=== PATIENT | female | born 1935 | race Caucasian/White ===

== ENCOUNTER 2017-01-24 09:24 | Inpatient (IN) | payer MEDICARE, OTHER ==
[~2017-01-24] VITALS: Ht 154.9 cm; Wt 78.4 kg
[~2017-01-24 09:24] MED LIST: ASPIR-LOW81 M1 PO; FLONASE ALLERG9.9 ML; IRON PO; LOSARTAN-HCTZ1 EAC6 PO; MUCINEX600 M1 PO; OMEPRAZOLE20 M3 PO; PLAVIX75 M1 PO; PRAVASTATIN SOD80 M1 PO; SUDAFED; SYNTHROID25 MC1 PO; TOPROL XL200 M1 PO
[2017-02-07] MEDS ORDERED: DETROL1 M1 PO (14:22)
[2017-02-07] MEDS ORDERED: PEPCID20 M1 PO (14:22)
[2017-02-07] MEDS ORDERED: NORVASC5 M2 PO (14:22)
[2017-02-07] MEDS ORDERED: NORCO 5-325 TA1 EACH PO (15:23)
[2017-02-07] MEDS ORDERED: MIRALAX17 G2 PO (15:23)
[2017-02-13] MEDS ORDERED: MIRALAX17 G2 PO (14:35)
[2017-02-13] MEDS ORDERED: HYDROCODON-ACE1 EA16 PO (14:35)
[2017-02-14] MEDS ORDERED: PREVACID15 M2 PO (09:37)
[2017-02-14] MEDS ORDERED: IRON325 M3 PO (09:38)
[2017-02-14] MEDS ORDERED: HAIR, SKIN & N1 EAC2 PO (09:39)
[2017-02-14] MEDS ORDERED: CALCIUM 600 +1 EA24 PO (09:39)
[2017-02-14] MEDS ORDERED: GLUCOSAMINE &1 EAC2 PO (09:40)
[2017-02-14] MEDS ORDERED: LUTEIN-ZEAXANT1 EAC1 PO (09:40)
[2017-02-14] MEDS ORDERED: GARLIC PO (09:41)
[2017-02-14] MEDS ORDERED: CO Q-10100 M2 PO (09:41)
[2017-04-29] MEDS ORDERED: ULTRAM50 M1 PO ×2 (17:45)
[2017-04-29] MEDS ORDERED: BACTRIM DS TAB1 EAC2 PO (17:48)
[2017-05-01 13:00] LABS: PROTHROMBIN TIME 12.1 SECONDS (9.0-13.6)
[2017-05-02 06:10] LABS: BASO % 0.1 % (0-2); HCT-HEMATOCRIT 31.5 % (34.0-49.0); HGB-HEMOGLOBIN 9.6 gm/dl (12.0-15.5); IMMATURE GRANULOCYTES ABSOLUTE 0.03 tho/cmm (0-0.03); IMMATURE GRANULOCYTES PERCENT 0.3 % (0-0.3); LYMPH % 9.9 % (20-45); MCHC MEAN CORPUSCULAR HGB CONC 30.5 % (32.0-36.0); MCV (MEAN CELL VOLUME) 85.4 fl (82.0-96.0); MEAN PLATELET VOLUME 11.9 cmc (9.4-12.4); MONO % 8.2 % (0-12); MONOCYTE ABSOLUTE COUNT 0.9 tho/cmm (0.0-1.2); NEUTROPHIL ABSOLUTE COUNT 8.5 tho/cmm (1.6-8.0); NEUTROPHIL-AUTOMATED 8.5 tho/cmm (1.6-8.0); NEUTROPHILS % 81.5 % (40-80); PLATELET COUNT 195 tho/cmm (150-450); RED BLOOD COUNT 3.69 mil/cmm (4.00-5.20); RED CELL DISTRIBUTION WIDTH 16.1 % (12.4-16.4); WHITE BLOOD COUNT 10.4 tho/cmm (4.0-10.0)
[2017-05-03] MEDS ORDERED: ASPIRIN81 M1 PO (09:20)
[2017-05-03] MEDS ORDERED: TYLENOL325 M2 PO ×2 (09:21→11:59)
[2017-05-03] MEDS ORDERED: ULTRAM50 M1 PO (09:22)
[2017-05-03] MEDS ORDERED: ROXICODONE5 M2 PO (11:58)
[2017-05-03] MEDS ORDERED: MILK OF MAGNESIA PO (12:00)
[2017-05-03] MEDS ORDERED: SENOKOT-S TABL1 EACH PO (12:01)
== END 2017-05-03 14:30 | DRG 470 ==
LOC: JCUC 09:24 → 5EA 05-01 10:44 → SHSB 05-01 10:44 → SHSA 05-01 10:44 → SHSB 05-01 10:59 → JCUC 05-01 11:00 → ORE 05-01 12:48 → PACU 05-01 14:35 → 5EA 05-01 15:45 → JCUC 08-12 12:00
PROVIDERS: ADMIT Orthopaedic Surgery Foot and Ankle Surgery
PROC: 0SRD0J9 Replacement of Left Knee Joint with Synthetic Substitute, Cemented, Open Approach (ICD-10-PCS; principal; 2017-05-01)
DX: M17.12 Unilateral primary osteoarthritis, left knee (principal); G54.0 Brachial plexus disorders; I10 Essential (primary) hypertension; Z86.73 Personal history of transient ischemic attack (TIA), and cerebral infarction without residual deficits; Z79.891 Long term (current) use of opiate analgesic; Z79.899 Other long term (current) drug therapy; Z68.32 Body mass index [BMI] 32.0-32.9, adult; Z87.440 Personal history of urinary (tract) infections; I65.23 Occlusion and stenosis of bilateral carotid arteries; K29.50 Unspecified chronic gastritis without bleeding; R53.83 Other fatigue; K21.9 Gastro-esophageal reflux disease without esophagitis; R73.9 Hyperglycemia, unspecified; E78.5 Hyperlipidemia, unspecified; E87.6 Hypokalemia; E03.9 Hypothyroidism, unspecified; D50.9 Iron deficiency anemia, unspecified; E66.9 Obesity, unspecified; M48.00 Spinal stenosis, site unspecified; N31.9 Neuromuscular dysfunction of bladder, unspecified; Z86.79 Personal history of other diseases of the circulatory system
CPT/HCPCS: C1713; C1776; J0171; J0690; J1885; J2270; J2795

== ENCOUNTER 2017-02-07 13:53 | Emergency (ER) | payer MEDICARE, OTHER ==
[2017-02-07] MEDS ORDERED: NORVASC5 M2 PO (14:22)
[2017-02-07] MEDS ORDERED: PEPCID20 M1 PO (14:22)
[2017-02-07] MEDS ORDERED: DETROL1 M1 PO (14:22)
[2017-02-07] MEDS ORDERED: NORCO 5-325 TA1 EACH PO (15:23)
[2017-02-07] MEDS ORDERED: MIRALAX17 G2 PO (15:23)
== END 2017-02-07 15:28 ==
LOC: EDMED 13:53
DX: S22.41XA Multiple fractures of ribs, right side, initial encounter for closed fracture (principal); I10 Essential (primary) hypertension; E78.5 Hyperlipidemia, unspecified; W18.09XA Striking against other object with subsequent fall, initial encounter; Z86.73 Personal history of transient ischemic attack (TIA), and cerebral infarction without residual deficits; Z79.899 Other long term (current) drug therapy
CPT/HCPCS: J1170